=== PATIENT | female | born 1990 | race Caucasian/White ===

== ENCOUNTER → 2018-01-22 | Outpatient (CLI) | payer OTHER ==
[~2018-01-22] MED LIST: DOCU-131 PO; HYDR-3240 PO; LEVO175T5 PO; PREN1TAB56 PO
[2018-01-22 08:07] LABS: CHOL/HDL RATIO 3.8; FREE T4 (FREE THYROXINE) 1.49 ng/dL (0.76-1.46); LDL/HDL RATIO 2.3 (0.5-3.0); THYROID STIMULATING HORMONE 0.457 mIU/L (0.358-3.740)
== END | disposition home or self-care (01) ==
LOC: LAB 07:32
PROVIDERS: ATTEND Family Medicine
DX: Z13.220 Encounter for screening for lipoid disorders (principal); E55.9 Vitamin D deficiency, unspecified
CPT/HCPCS: 36415; 80061; 82306; 84439; 84443

== ENCOUNTER 2018-08-07 08:13 | Outpatient (CLI) | payer OTHER | END 2018-08-07 23:59 | disposition home or self-care (01) | LOC: LAB 08:13 | PROVIDERS: ATTEND Family Medicine | DX: E03.9 Hypothyroidism, unspecified (principal); E55.9 Vitamin D deficiency, unspecified; R73.9 Hyperglycemia, unspecified; D51.3 Other dietary vitamin B12 deficiency anemia | CPT/HCPCS: 36415; 80053; 80061; 82306; 82607; 83036; 84439; 84443; 85025 ==

== ENCOUNTER → 2019-09-10 | Outpatient (CLI) | payer OTHER ==
[2019-09-10 10:42] LABS: FREE T4 (FREE THYROXINE) 1.4 ng/dL (0.76-1.46)
== END | disposition home or self-care (01) ==
LOC: LAB 10:02
PROVIDERS: ATTEND Obstetrics & Gynecology
DX: N92.0 Excessive and frequent menstruation with regular cycle (principal); N91.2 Amenorrhea, unspecified
CPT/HCPCS: 36415; 84439; 84443; 84702

== ENCOUNTER → 2019-09-20 | Outpatient (CLI) | payer OTHER | END | disposition home or self-care (01) | LOC: LAB 10:27 | PROVIDERS: ATTEND Family Medicine | DX: N91.2 Amenorrhea, unspecified (principal) | CPT/HCPCS: 36415; 84702 ==